=== PATIENT | female | born 1970 ===

== ENCOUNTER 2021-01-28 04:18 | Emergency (ER) | payer MEDICARE, OTHER ==
[~2021-01-28] VITALS: Ht 157.5 cm; Wt 77.1 kg
[2021-01-28 04:18] VITALS: BP 162/84
== END 2021-01-28 05:27 | disposition left against medical advice (07) ==
LOC: ER 04:18
DX: R53.1 Weakness (principal); R06.02 Shortness of breath; Z53.21 Procedure and treatment not carried out due to patient leaving prior to being seen by health care provider

== ENCOUNTER 2021-11-12 18:19 | Emergency (ER) | payer MEDICARE, MEDICAID ==
[~2021-11-12] VITALS: Ht 157.5 cm; Wt 80.9 kg
[2021-11-12 18:41] VITALS: BP 193/117
== END 2021-11-13 05:00 | disposition left against medical advice (07) ==
LOC: ER 18:19
DX: H53.141 Visual discomfort, right eye (principal); R51.9 Headache, unspecified; I10 Essential (primary) hypertension; Z53.21 Procedure and treatment not carried out due to patient leaving prior to being seen by health care provider
CPT/HCPCS: 93005